=== PATIENT | female | born 1995 | race Two or more races ===

== ENCOUNTER 2025-07-14 10:04 | Outpatient (CLI) | payer BC ==
[2025-07-14 10:46] LABS: Hematocrit 34.0 % (36.0-46.0); Hemoglobin 10.9 g/dL (12.2-16.2); Mean Corpuscular Hemoglobin 27.5 pg (28.0-32.0); Mean Corpuscular Volume 85.6 fL (80.0-100.0); Nucleated Red Blood Cells % 0.1 %
[2025-07-14 10:53] LABS: Urine Protein, UAD Negative (Negative)
[2025-07-14 11:04] LABS: Albumin 4.6 g/dL (3.2-4.8); Alkaline Phosphatase 96 U/L (46-116); Anion Gap 14 (5-15); BUN/Creatinine Ratio 9.4 (10.0-20.0); Blood Urea Nitrogen 13 mg/dL (9-23); Calcium 10.1 mg/dL (8.7-10.4); Carbon Dioxide 24 mmol/L (20-31); Chloride 103 mmol/L (98-107); Sodium 141 mmol/L (136-145); Total Protein 7.5 g/dL (5.7-8.2)
[2025-07-14 11:05] LABS: Bilirubin, Total 0.5 mg/dL (0.2-1.0); Cholesterol 137 mg/dL (< 200)
[2025-07-14 11:08] LABS: Alanine Aminotransferase 96 U/L (7-40); Glucose 113 mg/dL (74-106); HDL Cholesterol 32 mg/dL (40-59); Potassium 3.3 mmol/L (3.5-5.1); Triglycerides 154 mg/dL (< 150)
== END 2025-07-14 17:00 | disposition home or self-care (01) ==
LOC: LAB 10:04
PROVIDERS: ATTEND Internal Medicine
DX: Z00.01 Encounter for general adult medical examination with abnormal findings (principal)
CPT/HCPCS: 36415; 80053; 80061; 81001; 82043; 82088; 83036; 84244; 84443; 85025